=== PATIENT | female | born 1970 | race Caucasian/White ===

== ENCOUNTER 2025-01-15 14:54 | Outpatient (AMB) | payer BC, SELFPAY ==
--- NOTE | 2025-01-15 14:58 | A.OFFVIS_ITS ---
Vital Signs 01/15/25 15:24 Height 5 ft 2 in Weight 124 lb 3 oz BMI 22.7 BP 136/68 Blood Pressure Location Rt brachial Position Sitting Pulse 92 Pulse Source Pulse Oximeter Pulse Oximetry (%) 99 Oxygen Delivery Method Room Air Intake Visit Reasons: Cecil screening Intake Note: NEW PATIENT for abd pain, hx of gastroparesis and chronic nausea. Pt transferred from [facility] to [facility] per PCP recommendation. Prior hx of colo/egd? 2-3 years ago via [facility]. Records request filled out and signed by patient. Chief Complaint; C/O chronic condition mgmt. Pt transferred from [facility] to our department for continuity of care per PCP. Pt has hx of IBS-Mixed as well as ischemic colitis. Pt reports starting humira after cessation of enbrel with positive results to this point. Campus Wellness Coordinator Required: No Accompanied by: Self / Same As Patient Allergies latex Allergy (Mild, Verified 01/15/25 15:01) Rash amoxicillin Allergy (Unknown, Verified 01/15/25 15:01) Unknown HPI HPI Cecil screening: Details: [age] year old female with past medical history of fibromyalgia, hypothyroidism, depression, anxiety, Richard-Danlos, gastroparesis, chronic constipation, adhesions is here today for initial consultation. Patient was sent to us by her PCP for 2nd opinion. Patient previously seen him [facility], last visit with them was in June 2022. Patient has been having long history of GI symptoms. She describes it for most of her life. Nausea and constipation along with abdominal pain. Diagnosed with ischemic colitis in 2016. Patient did not require surgery at that time. Patient was hospitalized for 2 weeks. Followed by [facility] till about 2 and half years ago. Diagnosed with gastroparesis in 2016. Notes from PCP and her GI specialist reviewed. Few years ago patient had vasovagal passing-out episodes, was on Holter monitor and was evaluated for POTS. Patient had extensive workup with them that included colonoscopy, video capsule endoscopy and upper endoscopy. Diverticulosis was found. Upper endoscopy was normal. She had 1 polyp, tubular adenoma found without dysplasia or carcinoma. Patient's last colonoscopy was in 2016 and she is due to go for another procedure. When reviewing records I found that on colonoscopy in May of 2017 she was found to have segmental severe inflammation in the sigmoid colon secondary to ischemic colitis, moderate diverticulosis was found. [facility] Medical History (Updated 02/04/25 @ 18:40 by Akanksha Abreu [facility]) Rheumatoid arteritis POTS (postural orthostatic tachycardia syndrome) Richard-Danlos syndrome Lupus (systemic lupus erythematosus) Gastroparesis Chronic nausea Irritable bowel syndrome with diarrhea Constipation Surgical History (Updated 01/15/25 @ 15:25 by Marck Daniel CCM) History of colonoscopy H/O: hysterectomy Family History (Updated 01/15/25 @ 15:25 by MAYA Monge) Father Colon cancer Maternal Grandmother Colon cancer Social History (Updated 01/15/25 @ 15:06 by MAYA Monge) Alcohol intake: never Patient Tobacco Use Status: Former Tobacco user Review of Systems Const Denies weight gain and Denies weight loss ENT Reports no additional complaints, Denies dysphagia and Denies odynophagia Card Reports no additional complaints Resp Reports no additional complaints GI Reports abdominal pain (Epigastric), Denies belching, Denies melena, Reports bloating, Denies change in bowel habits, Reports constipation, Denies dysphagia, Denies excessive flatus, Reports dyspepsia, Reports heartburn, Denies diarrhea, Reports loose stools, Reports nausea, Denies odynophagia and Denies vomiting Reports no additional complaints Musc Reports no additional complaints Neuro Reports no additional complaints Psych Reports no additional complaints Endo Reports no additional complaints Physical Exam Vital Signs: Last Vital Signs Pulse 92 01/15/25 15:24 BP 136/68 01/15/25 15:24 Pulse Ox 99 01/15/25 15:24 Oxygen Delivery Method Room Air 01/15/25 15:24 BMI result Body Mass Index 22.7 Const General: healthy appearing, no acute distress and well developed Nutritional Appearance: well nourished Orientation/consciousness: patient oriented x3 Resp Effort & Inspection: normal respiratory effort, able to speak in complete sentences, no tracheal deviation and symmetric chest movement Auscultation: clear to auscultation bilaterally Cardio Rate: regular rate GI Inspection: Yes normal to inspection and No distended Palpation (GI): Soft to palpation, not firm, nontender and No hepatosplenomegaly present Auscultation: normal bowel sounds General: Yes no CVA tenderness Back/Spine/Pelvis Back: no CVA tenderness Skin General skin exam: elasticity normal, turgor normal and dry skin Neuro General: patient oriented x3 Psych Appearance: grossly normal Mental Status: mental status grossly normal Assessment & Plan Assessment & Plan (1) Constipation: Code(s): K59.00 - Constipation, unspecified Category: Medical Qualifiers: Constipation type: slow transit constipation Qualified Code(s): K59.01 - Slow transit constipation (2) Gastroparesis: Code(s): K31.84 - Gastroparesis Category: Medical (3) Chronic nausea: Code(s): R11.0 - Nausea Category: Medical (4) Irritable bowel syndrome with diarrhea: Code(s): K58.0 - Irritable bowel syndrome with diarrhea Category: Medical (5) Postprandial abdominal bloating: Code(s): R14.0 - Abdominal distension (gaseous) (6) Postprandial epigastric pain: Code(s): R10.13 - Epigastric pain Plan Will start patient on pantoprazole, avoid dietary triggers and late night snacking. Staying upright for minimum 3 hours after meals discussed with patient. Will send her to check for celiac. Will check magnesium and vitamin K. Patient does report postprandial loose stools. Occasional abdominal bloating postprandially and sometimes not related to meals. Low FODMAP diet discussed with patient. List of food recommended as well as list of food to avoid given to patient. Patient will also be sent for upper GI swallow due to her epigastric pain. Awaiting records from him [facility] to check her gastric emptying study and other tested were done. Patient has not seen him for over 2 years. Will rule out malabsorption as well as colitis. Patient reports frequently feeling like she does not empty her bowels she can start taking senna. Increase fluid intake and activity to promote better bowel motility. Patient will follow-up in 3-4 months, sooner on as needed basis. She was given the opportunity to ask questions and all questions answered. Thank you for allowing me to participate in her care Orders: Orders Calprotectin, Fecal 01/15/25 R15.9 - Full incontinence of feces Transglutaminase IgA 01/15/25 R10.9 - Unspecified abdominal pain Magnesium 01/15/25 N18.9 - Chronic kidney disease, unspecified Vitamin K1 01/15/25 R10.9 - Unspecified abdominal pain FL upper GI w Ba Swallow 01/15/25 K21.9 - Gastro-esophageal reflux disease without esophagitis Medications: New sennosides (Natural Senna Laxative) 17.2 mg (2 x 8.6 mg) PO BEDTIME 60 tabs 3RF constipation K59.00 - Constipation, unspecified pantoprazole take one tablet half an hour before breakfast 40 mg PO DAILY 30 tabs 2RF K21.9 - Gastro-esophageal reflux disease without esophagitis Coding Level of Care Code New Pt Level 4 (62116) Diagnoses Slow transit constipation K59.01 Constipation type: slow transit constipation Gastroparesis K31.84 Chronic nausea R11.0 Irritable bowel syndrome with diarrhea K58.0 Postprandial abdominal bloating R14.0 Postprandial epigastric pain R10.13 Time Spent (min) 50 Comment 35 minutes spent with patient and additional 15 minutes spent reviewing her records
[2025-01-15 15:24] VITALS: BP 136/68; PULSE 92; O2SAT 99; BMI 22.7
--- OUTSIDE RECORDS SUMMARY | 2025-01-15 17:45 | XMS_ITS | Data Portability ---
Author Organization [facility], Endoscopy, [facility] Address [address] [place] [address] Assessment No assessment recorded. Plan of Treatment Reminders Order Date Submit Date Provider Last Modified By Organization Details Last Modified Time Details Appointments None record ed. Lab None record ed. Referral None record ed. Procedures None record ed. Surgeries None record ed. Imaging None record ed. Medication Orders None record ed. Patient TargetsNo targets recorded. Patient InstructionsNo instructions recorded. Reason for Referral None Reported. Problems Name Problem SNOMED Code Status Onset Date Resolution Date Notes Provider Name and Address Organization Details Recorded Time Fibromyalgia 786331407 Active 2022 DEVIKA Munson, [facility] 3 14:11:30 Problem Notes None recorded. Procedures Surgical History Date Name Laterality Status Provider Name and Address Organization Details Recorded Time 3 Armen - Colonoscopy completed Diaz Ayers MD [address] [place] [address], [phone], [facility] [place]01/20[place] 08:34:53 Imaging Results None recorded. Procedure Notes None recorded. Medical Equipment None Reported. Allergies Allergen ID Allergen Name Allergen Category Reaction Reaction Severity Criticality Documentation Date Start Date Code Code System Note Provider Name and Address Organization Details Recorded Time 558220 methotrex ate medicatio n other Not available Not available 10/28/2022 6851 RxNorm tremo rs DEVIKA Braga, [facility] 3 14:26:51 048098 amoxicill in medicatio n other Not available Not available 10/28/2022 723 RxNorm gi upset DEVIKA Braga, [facility] 3 14:27:10 761001 Dilaudid medicatio n other Not available Not available 10/28/2022 81983 3 RxNorm hypot ensio nsync ope Noy Evans RN [facility] 3 14:27:33 Medications Name Sig Start Date Stop Date Status Note LastModified by Organization Details LastModified Time estradiol 1 mg tablet TAKE 1 TABLET BY MOUTH ONCE DAILY active Not Available Not Available No t Available prednisone 1 mg tablet TAKE 3 TABLETS BY MOUTH ONCE DAILY active Not Available Not Available No t Available baclofen 10 mg tablet TAKE 1 TABLET BY MOUTH NIGHTLY AT BEDTIME active Not Available Not Available No t Available levothyroxine 50 mcg tablet TAKE 1 TABLET BY MOUTH ONCE DAILY ON AN EMPTY STOMACH active Not Available Not Available No t Available diclofenac sodium 50 mg tablet,delayed release TAKE 1 TABLET BY MOUTH ONCE DAILY active Not Available Not Available No t Available bupropion HCl XL 300 mg 24 hr tablet, extended release TAKE 1 TABLET BY MOUTH ONCE DAILY IN THE MORNING active Not Available Not Available No t Available pregabalin 25 mg capsule TAKE 1 CAPSULE BY MOUTH THREE TIMES DAILY active Not Available Not Available No t Available pregabalin 75 mg capsule TAKE 1 CAPSULE BY MOUTH NIGHTLY AT BEDTIME active Not Available Not Available No t Available biotin active Not Available Not Availa ble Not Available Vitamin D active Not Available Not Lamar ilable Not Available Miralax active Not Available Not Avail able Not Available Plenvu 140 gram-9 gram-5.2 gram powder packs USE DIRECTED active Not Available Not Available No t Available Vitals None Recorded Social History None recorded. Functional Status None recorded. Mental Status None recorded. Family History Nothing Reported. Medical History No medical history recorded. Gynecological HistoryNo gynecological history recorded. Obstetrics History GPAL:G 0 P 0 0 0 0 Past Encounters Encounter ID Performer Location Encounter Start Date Encounter Closed Date Diagnosis/Indication Diagnosis SNOMED-CT Code Diagnosis ICD10 Code Diagnosis Note [id number] Physical Therapy, [address] [address] 01/18/2005 09:02:56 01/18/2005 10:27:03 [id number] Physical Therapy, [address] [address] 01/22/2005 08:34:44 01/22/2005 08:35:06 [id number] Physical Therapy, [address] [address] 02/01/2005 14:41:10 02/01/2005 16:30:12 [id number] Physical Therapy, [facility] [place] [address] 02/08/2005 08:01:16 02/08/2005 09:14:52 [id number] Physical Therapy, [facility] [place] [address] 01/25/2005 09:34:38 01/25/2005 10:02:57 [id number] Physical Therapy, [facility] [place] [address] 02/15/2005 07:57:57 02/15/2005 08:00:27 [id number] Physical Therapy, [facility] [place] [address] 02/22/2005 08:00:55 02/22/2005 08:01:21 [id number] Lianne Loomis [facility] [place] [address] 01/26/2016 09:26:59 01/26/2016 14:01:54 [id number] Fernandez Reyes MD [facility] [place] [address] 08/05/2017 06:40:02 08/05/2017 12:33:05 [id number] Noy Evans RN Endoscopy , [facility] [place] [address] 11/01/2022 06:43:33 11/01/2022 12:51:43 Health Concerns Section Related Observation LastModified by Organization Detai ls LastModified Time None Recorded Concern Status LastModified by Organization Details LastModified Time None Recorded Advance Directives Directive None Recorded Payers Encounter Date Sequence Insurance Name Policy Number Policy Nieto Covered Member ID Nieto Member ID Guarantor Name 11/01/2022 1 [place] [facility] [place] [id number] Chauncey Dunlap [id number] Mayte Dunlap OBGyn Episode No OBEpisode recorded.
--- OUTSIDE RECORDS SUMMARY | 2025-01-15 17:45 | XMS_ITS | Data Portability ---
Author Organization [facility], , [facility] Address [address] [place] [address] Assessment No assessment recorded. Plan of Treatment [...] instructions recorded. Reason for Referral None Reported. Results Created Date Observation Date Name Description Value Unit Range Abnormal Flag Note LastModifiedBy Organization Detail LastModifiedTime Result Notes None recorded. Problems Name Problem SNOMED Code Status Onset Date Resolution Date Notes Provider Name and Address Organization Details Recorded Time Shoulder pain 49217469 Completed 200409/05/2013 Not Available [facility] 3 02:01:03 Primary fibromyalgi a syndrome 42740455 Active 2004 Not Available [facility] 3 03:04:50 Problem Notes None recorded. Procedures Surgical History Date Name Laterality Status Provider Name and Address Organization Details Recorded Time 7 Eric - Colonoscopy completed Fernandez Reyes MD [address] [place] [address], [phone], [facility] 08/05/2017 08:38:00 6 Eric - EGD completed Fernandez Reyes MD [address] [place] [address], [phone], [facility] 01/26/2016 11:59:19 6 Eric - Colonoscopy completed Fernandez Reyes MD [address] [place] [address], [phone], [facility] 01/26/2016 12:22:59 Imaging Results None recorded. Procedure Notes None recorded. Medical Equipment None Reported. Vitals None Recorded Social History None recorded. Functional Status None recorded. Mental Status None recorded. Family History Nothing Reported. Medical History No medical history recorded. Gynecological HistoryNo gynecological history recorded. Obstetrics History GPAL:G 0 P 0 0 0 0 Past Encounters Encounter ID Performer Location Encounter Start Date Encounter Closed Date Diagnosis/Indication Diagnosis SNOMED-CT Code Diagnosis ICD10 Code Diagnosis Note [id number] Physical Therapy, [address] [place] [address] 01/18/2005 09:02:56 01/18/2005 10:27:03 [id number] Physical Therapy, [address] [place] [address] 01/22/2005 08:34:44 01/22/2005 08:35:06 [id number] Physical Therapy, [address] [place] [address] 02/01/2005 14:41:10 02/01/2005 16:30:12 [id number] Physical Therapy, [address] [place] [address] 02/08/2005 08:01:16 02/08/2005 09:14:52 [id number] Physical Therapy, [address] [place] [address] 01/25/2005 09:34:38 01/25/2005 10:02:57 [id number] Physical Therapy, [address] [place] [address] 02/15/2005 07:57:57 02/15/2005 08:00:27 [id number] Physical Therapy, [address] [place] [address] 02/22/2005 08:00:55 02/22/2005 08:01:21 [id number] Lianne Loomis [facility], [address] [place] [address] 01/26/2016 09:26:59 01/26/2016 14:01:54 [id number] Fernandez Reyes MD [facility], [address] [place] [address] 08/05/2017 06:40:02 08/05/2017 12:33:05 [id number] Noy Evans RN Endoscopy , [address] [place] [address] 11/01/2022 06:43:33 11/01/2022 12:51:43 Health Concerns Section Related Observation LastModified by Organization Detai ls LastModified Time None Recorded Concern Status LastModified by Organization Details LastModified Time None Recorded Advance Directives Directive None Recorded Payers Encounter Date Sequence Insurance Name Policy Number Policy Nieto Covered Member ID Nieto Member ID Guarantor Name 02/08/2005 1 [place] Chauncey Dunlap [id number] Mayte Dunlap 02/15/2005 1 [place] Chauncey Dunlap [id number] Mayte Dunlap 02/22/2005 1 [place] Chauncey Dunlap [id number] Mayte Dunlap 01/26/2016 1 [facility] [place] [id number] Mayte Dunlap [id number] Mayte Dunlap 01/26/2016 1 [employer] [id number] Mayte Dunlap [id number] Mayte Dunlap 08/05/2017 1 [place] [facility] [place] [id number] Chauncey Dunlap [id number] Mayte Dunlap OBGyn Episode No OBEpisode recorded.
== END 2025-01-15 15:58 | disposition home or self-care (01) ==
PROVIDERS: PCP Student in an Organized Health Care Education/Training Program; Visit Provider Nurse Practitioner Family
DX: K59.01 Slow transit constipation (principal); K31.84 Gastroparesis; R11.0 Nausea; K58.0 Irritable bowel syndrome with diarrhea; R14.0 Abdominal distension (gaseous); R10.13 Epigastric pain
CPT/HCPCS: 99204

== ENCOUNTER 2025-01-15 14:54 | Outpatient (REF) | payer BC, SELFPAY ==
[2025-01-15 18:01] LABS: Magnesium 2.2 mg/dL (1.6-2.6)
[2025-01-16 21:54] LABS: Transglutaminase IgA <1.0 U/mL
[2025-01-19 19:23] LABS: Vitamin K1 55 pg/mL (130-1500)
== END 2025-01-15 14:55 | disposition home or self-care (01) ==
LOC: HO.LAB 14:54
PROVIDERS: PCP Student in an Organized Health Care Education/Training Program; Visit Provider Nurse Practitioner Family
DX: R10.9 Unspecified abdominal pain (principal); N18.9 Chronic kidney disease, unspecified
CPT/HCPCS: 36415; 83735; 84597; 86364

== ENCOUNTER 2025-04-11 09:04 | Outpatient (REF) | payer BC, SELFPAY ==
--- NOTE | ~2025-04-11 | FL_ITS ---
EXAMINATION: XR UPPER GI SERIES WITH SMALL BOWEL CLINICAL INFORMATION: Gastroesophageal reflux disease without esophagitis. COMPARISON: None available. TECHNIQUE: Routine upper GI air contrast study was performed. In addition barium swallow was performed with thick barium and barium coated saltine crackers. FINDINGS: Following oral administration of thick barium in upright view there is normal. Bolus from the oral cavity, pharynx, esophagus into stomach. There are tertiary peristalsis/corkscrew appearance mid and distal esophagus. On oral administration of barium coated saltine crackers there is normal propagation bolus with slow progression from the oral cavity, pharynx, esophagus into stomach which subsequently clears with thin barium. Effervescent granules was administered orally. On placing patient in supine there is increased gastric secretion. The course, caliber and peristalsis of the stomach, duodenal bulb and this CT is normal. There is mild gastroesophageal reflux without hiatal hernia there is suspicion for gastric erosions in the body of the stomach and the fundus. FLUOROSCOPY TIME: 2 minute 9 seconds. DOSE AREA PRODUCT: 1241 uGy-m2 (microgray-meter squared) FL/FL upper GI w air w Ba Swallow IMPRESSION: Corkscrew appearance of distal esophagus consistent with dysmotility and presbyesophagus. Mild gastroesophageal reflux in supine view. Increased gastric secretions suggestive of hyper acidity. Electronically signed by: Jono Trejo MD 04/11/2025 12:15 PM EDT
--- OUTSIDE RECORDS SUMMARY | 2025-04-11 09:49 | XMS_ITS | Data Portability ---
Author Organization [facility], , [facility] Address [address] [place] [address] Assessment No assessment recorded. Plan of Treatment [...] Name and Address Organization Details Recorded Time Pain of shoulder region 68953491 Completed 200409/05/2013 Not Available Counts include 234 beds at the [facility] 3 02:01:03 Primary fibromyalgi a syndrome 77287056 Active 2004 Not Available Counts include 234 beds at the [facility] 3 03:04:50 Problem Notes None recorded. Procedures Surgical History Date Name Laterality Status Provider Name and Address Organization Details Recorded Time 7 Eric - Colonoscopy completed Fernandez Reyes MD [address] [place] [address], [phone], [facility] 08/05/2017 08:38:00 6 Eric - EGD completed Fernandez Reyes MD [address] [place] [address], [phone], [facility] 01/26/2016 11:59:19 6 Eric - Colonoscopy completed Fernandez Reyes MD [address] [place] [address], [phone], [facility] 01/26/2016 12:22:59 Imaging Results None recorded. Procedure [...] SNOMED-CT Code Diagnosis ICD10 Code Diagnosis Note [id number] Paul Ferguson i, PT Physical Therapy, [address] [address] 01/18/2005 09:02:56 01/18/2005 10:27:03 [id number] Paul Ferguson i, PT Physical Therapy, [address] [address] 01/22/2005 08:34:44 01/22/2005 08:35:06 [id number] Paul Ferguson i, PT Physical Therapy, [address] [address] 02/01/2005 14:41:10 02/01/2005 16:30:12 [id number] Paul Ferguson i, PT Physical Therapy, [address] [address] 02/08/2005 08:01:16 02/08/2005 09:14:52 [id number] Paul Ferguson i, PT Physical Therapy, [address] [address] 01/25/2005 09:34:38 01/25/2005 10:02:57 [id number] Paul Ferguson i, PT Physical Therapy, [address] [address] 02/15/2005 07:57:57 02/15/2005 08:00:27 [id number] Paul Ferguson i, PT Physical Therapy, [address] [address] 02/22/2005 08:00:55 02/22/2005 08:01:21 [id number] Fernandez Reyes MD [facility], [address] [address] 01/26/2016 09:26:59 01/26/2016 14:01:54 [id number] Fernandez Reyes MD [facility], [address] [address] 08/05/2017 06:40:02 08/05/2017 12:33:05 [id number] Diaz Ayers MD Endoscopy , [address] [address] 11/01/2022 06:43:33 11/01/2022 12:51:43 Health Concerns Section Related Observation LastModified by Organization Detai ls LastModified Time None Recorded Concern Status LastModified by Organization Details LastModified Time None Recorded Advance Directives Directive None Recorded Payers Insurance Date Sequence Insurance Name Policy Number Policy Nieto Covered Member ID Nieto Member ID Guarantor Name 11/30/2022 1 [place]: [facility] [place] [id number] Chauncey Dunlap [id number] Mayte Dunlap 06/28/2017 1 [facility] (O) [id number] Mayte Dunlap [id number] Mayte Dunlap 06/28/2017 1 [employer] [id number] Mayte Dunlap [id number] Mayte Dunlap 01/23/2016 1 [employer] (O) Chauncey Dunlap [id number] Mayte Dunlap OBGyn Episode No OBEpisode recorded.
== END 2025-04-11 09:05 | disposition home or self-care (01) ==
LOC: HO.XRAY 09:04
PROVIDERS: PCP Student in an Organized Health Care Education/Training Program; Visit Provider Nurse Practitioner Family
DX: K21.9 Gastro-esophageal reflux disease without esophagitis (principal)
CPT/HCPCS: 74246

== ENCOUNTER → 2025-04-11 09:05 | Outpatient (BNV) | payer BC, SELFPAY | PROVIDERS: PCP Student in an Organized Health Care Education/Training Program; Visit Provider Radiology Diagnostic Radiology | DX: K21.9 Gastro-esophageal reflux disease without esophagitis (principal) | CPT/HCPCS: 74246 ==

== ENCOUNTER 2025-04-17 15:46 | Outpatient (AMB) | payer BC, SELFPAY ==
--- OUTSIDE RECORDS SUMMARY | 2025-04-17 15:50 | XMS_ITS | Data Portability ---
Author Organization [facility], , [facility] Address [address] [place] [address] Assessment No assessment recorded. Plan of Treatment [...] Details Recorded Time Pain of shoulder region 70113731 Completed 200409/05/2013 Not Available [facility] 3 02:01:03 Primary fibromyalgi a syndrome [id number] Active 2004 Not Available [facility] 3 03:04:50 Problem Notes None recorded. Procedures Surgical History Date Name Laterality Status Provider Name and Address Organization Details Recorded Time 7 Eric - Colonoscopy completed Fernandez Reyes MD [address] [place] [address], [id number], [facility] 08/05/2017 08:38:00 6 Eric - EGD completed Fernandez Reyes MD [address] [place] [address], [phone], [facility] 01/26/2016 11:59:19 6 Eric - Colonoscopy completed Fernandez Reyes MD [address] [place] [address], [phone], [facility] 01/26/2016 12:22:59 Imaging Results None recorded. Procedure [...] SNOMED-CT Code Diagnosis ICD10 Code Diagnosis Note [id number] Paul Ferguson i, PT Physical Therapy, [address] [address] 01/18/2005 09:02:56 01/18/2005 10:27:03 [id number] Paul Ferguson i, PT Physical Therapy, [address] [address] 01/22/2005 08:34:44 01/22/2005 08:35:06 [id number] Paul Ferguson i, PT Physical Therapy, [address] [address] 02/01/2005 14:41:10 02/01/2005 16:30:12 [id number] Paul Ferguson i, PT Physical Therapy, [address] [address] 02/08/2005 08:01:16 02/08/2005 09:14:52 [id number] Paul Ferguson i, PT Physical Therapy, [address] [address] 01/25/2005 09:34:38 01/25/2005 10:02:57 [id number] Paul Ferguson i, PT Physical Therapy, [address] [address] 02/15/2005 07:57:57 02/15/2005 08:00:27 [id number] Paul Ferguson i, PT Physical Therapy, [address] [address] 02/22/2005 08:00:55 02/22/2005 08:01:21 [id number] Fernandez Reyes MD [facility], [address] [address] 01/26/2016 09:26:59 01/26/2016 14:01:54 [id number] Fernandez Reyes MD [facility], [address] [address] 08/05/2017 06:40:02 08/05/2017 12:33:05 [id number] Diaz Ayers MD Endoscopy , [address] [address] 11/01/2022 06:43:33 11/01/2022 12:51:43 Health Concerns Section Related Observation LastModified by Organization Detai ls LastModified Time None Recorded Concern Status LastModified by Organization Details LastModified Time None Recorded Advance Directives Directive None Recorded Payers Insurance Date Sequence Insurance Name Policy Number Policy Nieto Covered Member ID Nieto Member ID Guarantor Name 11/30/2022 1 PAOL[facility]: [facility] [place] [id number] Chauncey Dunlap [id number] Mayte Dunlap 06/28/2017 1 [facility] (O) [id number] Mayte Dunlap [id number] Mayte Dunlap 06/28/2017 1 v2 Ratings [id number] Mayte Dunlap [id number] Mayte Dunlap 01/23/2016 1 [facility] (O) Chauncey Dunlap [id number] Mayte Dunlap OBGyn Episode No OBEpisode recorded.
--- NOTE | 2025-04-17 16:01 | A.OFFVIS_ITS ---
Vital Signs 04/17/25 16:06 Height 5 ft 2 in Weight 123 lb 8 oz BMI 22.6 BP 126/76 Blood Pressure Location Rt brachial Position Sitting Pulse 94 Pulse Source Pulse Oximeter Pulse Oximetry (%) 95 Oxygen Delivery Method Room Air Intake Visit Reasons: f/u gerd Intake Note: EST PATIENT for mgmt of abd pain, gastroparesis and chronic nausea. Imaging done. Labs done. CC; C.O. difficulty with obtaining PPI from pharmacy. Pt still experiencing chronic sx without tx. 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 Staying upright for minimum 3 hours after meals discussed with patient. Will send her to check for celiac. Will check magnesium and vitamin K. Patient does report postprandial loose stools. Occasional abdominal bloating postprandially and sometimes not related to meals. Low FODMAP diet discussed with patient. List of food recommended as well as list of food to avoid given to patient. Patient will also be sent for upper GI swallow due to her epigastric pain. Awaiting records from [facility] to check her gastric emptying study and other tests that were done. Patient has not seen them for over 2 years. Will r ule out malabsorption as well as colitis. Patient reports frequently feeling like she does not empty her bowels she can start taking senna. Increase fluid intake and activity to promote better bowel motility. Patient will follow-up in 3-4 months, sooner on as needed basis. She was given the opportunity to ask questions and all questions answered. ? Thank you for allowing me to participate in her care Orders Calprotectin, Fecal 01/15/25 R15.9 Transglutaminase IgA 01/15/25 R10.9 Magnesium 01/15/25 N18.9 Vitamin K1 01/15/25 R10.9 FL upper GI w Ba Swallow 01/15/25 K21.9 New sennosides (Natural Senna Laxative) 17.2 mg (2 x 8.6 mg) PO BEDTIME 60 tabs 3RF constipation K59.00 pantoprazole take one tablet half an hour before breakfast 40 mg PO DAILY 30 tabs 2RF K21.9 TODAY'S VISIT: Patient is here today for follow-up and to discuss lab and upper GI series with barium swallow results. Patient reports that she is still feeling the same. Patient was unable to get her prescription for pantoprazole from pharmacy. Will give patient good Rx card and she can get it at her pharmacy at [facility]. For 90 tablets will be 20 dollars. Upper endoscopy and colonoscopy is not scheduled yet will try to get patient in this month. Upper GI series with barium swallow discussed with patient. 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 Will start patient 1st on PPI and then will try her on prucalopride. Patient is already on baclofen. Will have her go for endoscopy 1st. Patient had low vitamin K level and she is taking vitamin K supplement FOR[facility]LY [facility], [facility] Medical History (Updated 02/04/25 @ 18:40 by Akanksha Abreu [facility]) Rheumatoid arteritis POTS (postural orthostatic tachycardia syndrome) Richard-Danlos syndrome Lupus (systemic lupus erythematosus) Gastroparesis Chronic nausea Irritable bowel syndrome with diarrhea Constipation Surgical History (Updated 01/15/25 @ 15:25 by MAYA Monge) History of colonoscopy H/O: hysterectomy Family History (Updated 01/15/25 @ 15:25 by MAYA Monge) Father Colon cancer Maternal Grandmother Colon cancer Social History (Updated 01/15/25 @ 15:06 by MAYA Monge) Alcohol intake: never Patient Tobacco Use Status: Former Tobacco user Review of Systems Const Denies weight gain and Denies weight loss ENT Reports no additional complaints, Denies dysphagia and Denies odynophagia Card Reports no additional complaints Resp Reports no additional complaints GI Reports abdominal pain (Epigastric), Denies belching, Denies melena, Reports bloating, Denies change in bowel habits, Reports constipation, Denies dysphagia, Denies excessive flatus, Reports dyspepsia, Reports heartburn, Denies diarrhea, Reports loose stools, Reports nausea, Denies odynophagia and Denies vomiting Reports no additional complaints Musc Reports no additional complaints Neuro Reports no additional complaints Psych Reports no additional complaints Endo Reports no additional complaints Physical Exam Vital Signs: Last Vital Signs Pulse 94 04/17/25 16:06 BP 126/76 04/17/25 16:06 Pulse Ox 95 04/17/25 16:06 Oxygen Delivery Method Room Air 04/17/25 16:06 BMI result Body Mass Index 22.6 Const General: healthy appearing, no acute distress and well developed Nutritional Appearance: well nourished Orientation/consciousness: patient oriented x3 Resp Effort & Inspection: normal respiratory effort, able to speak in complete sentences, no tracheal deviation and symmetric chest movement Auscultation: clear to auscultation bilaterally Cardio Rate: regular rate GI Inspection: Yes normal to inspection and No distended Palpation (GI): Soft to palpation, not firm, nontender and No hepatosplenomegaly present Auscultation: normal bowel sounds General: Yes no CVA tenderness Back/Spine/Pelvis Back: no CVA tenderness Skin General skin exam: elasticity normal, turgor normal and dry skin Neuro General: patient oriented x3 Psych Appearance: grossly normal Mental Status: mental status grossly normal Results Reviewed Results Reviewed: UPPER GI WITH BARIUM SWALLOW IMPRESSION: Corkscrew appearance of distal esophagus consistent with dysmotility and presbyesophagus. Mild gastroesophageal reflux in supine view. Increased gastric secretions suggestive of hyper acidity. Laboratory Tests 01/15/25 16:31 Magnesium 2.2 Vitamin K1 55 L Tiss Transglutamin IgA <1.0 Assessment & Plan Assessment & Plan (1) Chronic nausea: Code(s): R11.0 - Nausea Category: Medical (2) Gastroparesis: Code(s): K31.84 - Gastroparesis Category: Medical (3) Constipation: Code(s): K59.00 - Constipation, unspecified Category: Medical Qualifiers: Constipation type: slow transit constipation Qualified Code(s): K59.01 - Slow transit constipation (4) Irritable bowel syndrome with diarrhea: Code(s): K58.0 - Irritable bowel syndrome with diarrhea Category: Medical (5) GERD (gastroesophageal reflux disease): Code(s): K21.9 - Gastro-esophageal reflux disease without esophagitis Qualifiers: Esophagitis presence: esophagitis presence not specified Qualified Code(s): K21.9 - Gastro-esophageal reflux disease without esophagitis Plan Patient will start taking pantoprazole daily. Avoid dietary triggers and late night snacking. Staying upright for minimum 3 hours after meals discussed with patient. 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 We could start her on Motegrity, however we will initiate PPI therapy 1st and then introduce that after her procedure. She is going for upper endoscopy. We will try to schedule her this month. Message sent to surgical schedulers to book procedure for patient. Patient was encouraged to eat smaller meals and more often chewing her food and being careful when she swallowing. She will follow-up in the office after the procedure, sooner on as needed basis. She is agreeable to this plan and verbalizes understanding of instructions. She was given the opportunity to ask questions and all questions answered. Thank you for allowing me to participate in her care Medications: New bisacodyl (Dulcolax (bisacodyl)) take 4 tabs at noon the day before your colonoscopy 20 mg (4 x 5 mg) PO ONCE 4 tabs 0RF constipation 1 day Z12.11 - Encounter for screening for malignant neoplasm of colon polyethylene glycol 3350 (Miralax) As directed by gastroenterology department at [facility] 238 grams PO ONCE 238 grams 0RF Z12.11 - Encounter for screening for malignant neoplasm of colon Refilled pantoprazole take one tablet half an hour before breakfast 40 mg PO DAILY 90 tabs 2RF K21.9 - Gastro-esophageal reflux disease without esophagitis Coding Level of Care Code Est Pt Level 4 (72264) Diagnoses Chronic nausea R11.0 Gastroparesis K31.84 Slow transit constipation K59.01 Constipation type: slow transit constipation Irritable bowel syndrome with diarrhea K58.0 Gastroesophageal reflux disease, unspecified whether esophagitis present K21.9 Esophagitis presence: esophagitis presence not specified Time Spent (min) 40 Comment 25 minutes spent with patient and additional 15 minutes spent reviewing her records
[2025-04-17 16:06] VITALS: BP 126/76; PULSE 94; O2SAT 95; BMI 22.6
== END 2025-04-17 17:00 | disposition home or self-care (01) ==
LOC: HO.HGI 15:47
PROVIDERS: PCP Student in an Organized Health Care Education/Training Program; Visit Provider Nurse Practitioner Family
DX: R11.0 Nausea (principal); K31.84 Gastroparesis; K59.01 Slow transit constipation; K58.0 Irritable bowel syndrome with diarrhea; K21.9 Gastro-esophageal reflux disease without esophagitis
CPT/HCPCS: 99214

== ENCOUNTER 2025-05-02 06:14 | Day surgery (SDC) | payer BC, SELFPAY ==
[2025-04-29 14:36] VITALS: BMI 22.6
--- NOTE | 2025-05-01 11:07 | HO.ANESPROP2 ---
Documented by User: Jeimy Hanna NP 05/01/25 11:19 HPI - Anesthesia Eval Consult details Narrative: 55yo F for Upper Endoscopy and Colonoscopy POTS: Follows PCP and Rheum - 03/22/25 ER with CP/dizzy/increase HR. Negative cardiac w/u in ED, has followed up with PCP (thyroid panel ordered) - no further cardiac concerns RA: Humira - held for 2 months for dental procedure - required prednisone taper 04/11/2025 [facility] Active Problems Active Problems: All Active Problems Constipation (Acute) POTS (postural orthostatic tachycardia syndrome) (Acute) Richard-Danlos syndrome (Acute) Lupus (systemic lupus erythematosus) (Acute) Gastroparesis (Acute) Chronic nausea (Acute) Irritable bowel syndrome with diarrhea (Acute) Past Medical History Medical History (Updated 04/30/25 @ 09:19 by Teresa Pierre RN) Rheumatoid arthritis Ischemic colitis POTS (postural orthostatic tachycardia syndrome) Richard-Danlos syndrome Lupus (systemic lupus erythematosus) Gastroparesis Chronic nausea Irritable bowel syndrome with diarrhea Constipation Family History Family History (Updated 01/15/25 @ 15:25 by MAYA Monge) Father Colon cancer Maternal Grandmother Colon cancer Surgical History Surgical History (Updated 04/30/25 @ 09:15 by Teresa Pierre RN) Hx of laparoscopy History of colonoscopy H/O: hysterectomy Social History Social History (Updated 01/15/25 @ 15:06 by MAYA Monge) Are you a primary careers counsellor to a significant other at home: No Do you presently have visiting nurse or other home services: No Alcohol intake: never Patient Tobacco Use Status: Former Tobacco user Second Hand Smoke Exposure: No Use of substances other than those prescribed or required for medical reasons: No Have you been hit, kicked, punched, or otherwise hurt by someone within the past year? If so, by whom?: No Are you DNR?: No Advance Directives: No Advance Directives Information Provided: Yes Advance Directives on File: No Patient : No : No Poor oral hygiene: No Meds Allergies Allergy/AdvReac Type Severity Reaction Status Date / Time hydromorphone (From Dilaudid) Allergy Severe extreme Verified 04/30/25 09:18 bradycardia amoxicillin Allergy Intermediate Rash/GI Verified 04/30/25 09:13 pain latex Allergy Mild Rash Verified 04/17/25 16:04 Home Medications ?Medication ?Instructions ?Recorded ?Confirmed ?Last Taken ?Type baclofen 10 mg tablet 10 mg PO BEDTIME 01/11/25 04/30/25 Unknown History biotin 1 mg capsule 1 mg PO TID 01/11/25 04/30/25 Unknown History bupropion HCl 300 mg 24 hr tablet, 300 mg PO QAM 01/11/25 04/30/25 Unknown History extended release (Wellbutrin XL) cholecalciferol (vitamin D3) 50 50 mcg PO DAILY 01/11/25 04/30/25 Unknown History mcg (2,000 unit) capsule diclofenac sodium 50 mg 50 mg PO BEDTIME 01/11/25 04/30/25 Unknown History tablet,delayed release estradiol 1 mg tablet 1 mg PO DAILY 01/11/25 04/30/25 Unknown History levothyroxine 50 mcg capsule 50 mcg PO BEDTIME 01/11/25 04/30/25 Unknown History oxycodone 5 mg tablet 5 mg PO Q8H PRN 01/11/25 Unknown History polyethylene glycol 3350 17 17 g PO DAILY 01/11/25 04/30/25 Unknown History gram/dose oral powder (Miralax) therapeutic multivitamin 1 tab PO DAILY 01/11/25 04/30/25 Unknown History triamcinolone acetonide 0.1 % 1 appl topical BID 01/11/25 04/30/25 Unknown History topical cream adalimumab 40 mg/0.4 mL 40 mg subcut Q2W 04/17/25 04/30/25 Unknown History subcutaneous pen kit (Humira(CF) Pen) prednisone 10 mg tablet 20 mg PO QPM 04/30/25 04/30/25 Unknown History Exam Height,Weight and Vital Signs: Height 5 ft 2 in Weight 56.019 kg Narrative Narrative: CBC and CMP 03/2025 from outside facility WNL - reports on chart Assessment and Plan Assessment Anesthesia Assessment: Chart Reviewed Documented by User: Kapil Kurtz MD 05/02/25 07:14 [facility] Past Medical History Medical History (Updated 04/30/25 @ 09:19 by Teresa Pierre RN) Rheumatoid arthritis Ischemic colitis POTS (postural orthostatic tachycardia syndrome) Richard-Danlos syndrome Lupus (systemic lupus erythematosus) Gastroparesis Chronic nausea Irritable bowel syndrome with diarrhea Constipation Family History Family History (Updated 01/15/25 @ 15:25 by MAYA Monge) Father Colon cancer Maternal Grandmother Colon cancer Family history of problems with anesthesia: No Surgical History Surgical History (Updated 04/30/25 @ 09:15 by Teresa Pierre RN) Hx of laparoscopy History of colonoscopy H/O: hysterectomy History of Problems with Anesthesia: No Social History Social History (Updated 01/15/25 @ 15:06 by MAYA Monge) Are you a primary careers counsellor to a significant other at home: No Do you presently have visiting nurse or other home services: No Alcohol intake: never Patient Tobacco Use Status: Former Tobacco user Second Hand Smoke Exposure: No Use of substances other than those prescribed or required for medical reasons: No Have you been hit, kicked, punched, or otherwise hurt by someone within the past year? If so, by whom?: No Are you DNR?: No Advance Directives: No Advance Directives Information Provided: Yes Advance Directives on File: No Patient : No : No Poor oral hygiene: No Meds Allergies Allergy/AdvReac Type Severity Reaction Status Date / Time hydromorphone (From Dilaudid) Allergy Severe extreme Verified 04/30/25 09:18 bradycardia amoxicillin Allergy Intermediate Rash/GI Verified 04/30/25 09:13 pain latex Allergy Mild Rash Verified 04/17/25 16:04 Home Medications ?Medication ?Instructions ?Recorded ?Confirmed ?Last Taken ?Type baclofen 10 mg tablet 10 mg PO BEDTIME 01/11/25 04/30/25 Unknown History biotin 1 mg capsule 1 mg PO TID 01/11/25 04/30/25 Unknown History bupropion HCl 300 mg 24 hr tablet, 300 mg PO QAM 01/11/25 04/30/25 Unknown History extended release (Wellbutrin XL) cholecalciferol (vitamin D3) 50 50 mcg PO DAILY 01/11/25 04/30/25 Unknown History mcg (2,000 unit) capsule diclofenac sodium 50 mg 50 mg PO BEDTIME 01/11/25 04/30/25 Unknown History tablet,delayed release estradiol 1 mg tablet 1 mg PO DAILY 01/11/25 04/30/25 Unknown History levothyroxine 50 mcg capsule 50 mcg PO BEDTIME 01/11/25 04/30/25 Unknown History oxycodone 5 mg tablet 5 mg PO Q8H PRN 01/11/25 Unknown History polyethylene glycol 3350 17 17 g PO DAILY 01/11/25 04/30/25 Unknown History gram/dose oral powder (Miralax) therapeutic multivitamin 1 tab PO DAILY 01/11/25 04/30/25 Unknown History triamcinolone acetonide 0.1 % 1 appl topical BID 01/11/25 04/30/25 Unknown History topical cream adalimumab 40 mg/0.4 mL 40 mg subcut Q2W 04/17/25 04/30/25 Unknown History subcutaneous pen kit (Humira(CF) Pen) prednisone 10 mg tablet 20 mg PO QPM 04/30/25 04/30/25 Unknown History Exam Airway Mallampati Class: I TM Dist: >3cm Neck ROM: Full Assessment and Plan Assessment Anesthesia Assessment: Anesthesia Plan Discussed Final Anesthetic Review Family History of Problems with Anesthesia: No History of Problems with Anesthesia: No NPO: Yes ASA Class: III Final Preanesthetic Review: No Changes in Pt Med Stat, Meds/Allgs Chart Reviewed, Consent Obtained/Reviewed and Anes Risks/Benef Reviewed Patient Risk: Intermediate Procedure Risk: Low Anesthetic Plan Anesthetic Plan: TIVA Disposition: Standard PACU
[2025-05-02 06:42] VITALS: BP 122/75; PULSE 85; RESP 16; TEMP 36.4; O2SAT 98
[2025-05-02] MEDS: Lactated Ringers 1,000 ML 100 ML IVCONT (06:50)
--- NOTE | 2025-05-02 07:40 | MHC.SHP ---
Pre-Procedural Eval Section A - 24 Hr Update-Section A only Date of Service: 05/02/25 Section B - Complete if H&P > 30 days Chief Complaint: screening,gerd,hx malignant neoplasm Relevant Family History (Specify if Yes): Yes Relevant Social History: None Present Medications: see Short Stay Collaborative assessment Medical History: Significant History (Rheumatoid arteritis POTS (postural orthostatic tachycardia syndrome) Richard-Danlos syndrome Lupus (systemic lupus erythematosus) Gastroparesis Chronic nausea Irritable bowel syndrome with diarrhea Constipation) History of Previous Operations: Relevant previous surgery/procedure and date(s) (History of colonoscopy H/O: hysterectomy) Allergies: Allergies Allergy/AdvReac Type Severity Reaction Status Date / Time hydromorphone (From Dilaudid) Allergy Severe extreme Verified 04/30/25 09:18 bradycardia amoxicillin Allergy Intermediate Rash/GI Verified 04/30/25 09:13 pain latex Allergy Mild Rash Verified 04/17/25 16:04 Review of Systems Sugical H&P ROS: Negative: Constitution, Cardiovascular, Respiratory, Neurological, Psychiatric, Hem-Onc, Allergic/Immunologic, Gastrointestinal, Genitourinary, Musculoskeletal, Integumentary, Endocrine and Eyes/Ears/Nose/Throat Exam Surgical H&P Exam: Normal: HEENT, Normal: Heart, Normal: Lungs, Normal: Extremities, Normal: Abdomen, Normal: Skin and Normal: Neurological Plan Diagnosis/Plan: Unchanged I have reviewed the history and physical and performed a pertinent physical examination on my patient. No changes have occurred unless specified. Time Spent With Patient Time: Total time managing care of this patient today ____ minutes.
--- NOTE | 2025-05-02 08:24 | HO.OPN-COLON ---
Colonoscopy Operative Note Operative Note Date of Service: 05/02/25 Narrative: Operative Information Procedure Description: EGD, Colonoscopy Indication: abn bowel habits, dysphagia Anesthesia: MAC FLEXIBLE TRANSORAL UPPER GASTROINTESTINAL ENDOSCOPY AND COLONOSCOPY PROCEDURE NOTE UPPER ENDOSCOPY Consent: Indications for the procedure and potential complications of bleeding, perforation, reaction to medications and missed diagnosis were discussed with the patient and informed consent was obtained. Instrument: Olympus GIF H 190 J mid size upper endoscope Monitoring: Vital signs and clinical assessment, continuous EKG monitoring, Pulse oximetry, Carbon Dioxide monitoring and blood pressure monitoring were done throughout the procedure. Procedure: The patient was placed in the left lateral decubitis position and pre-procedure medications were administered and a bite block was placed. The endoscope was inserted into the mouth and advanced under direct vision to the third part of duodenum. A careful inspection was made as the upper endoscope was withdrawn including a retroflexed examination of the proximal stomach; Findings and interventions are described below. Findings: Larynx:normal Esophagus: GE junction at 32 cm, diaphragm hiatus at 32 cm, normal mucosa- bx taken from distal and proximal esophagus, balloon dilation at LES and UES with heme noted at GEJ. Stomach: Patchy erythema and few fundic gland polyps noted 3-4 mm . Biopsies were obtained and poylps removed with cold forceps. Grade 2 flap valve on retroflexed examination of the cardia. Pylorus was tight and dialted using balloon to 20 mm with heme noted around the outlet. Duodenum: Normal bulb and descending duodenum, bx taken Intervention: Biopsies as noted above, wire guided and non wire guided balloon dilation of esophagus and pylorus COLONOSCOPY Instrument: Olympus variable stiffness pediatric scope 190L Colonoscopy Monitoring: Vital signs and clinical assessment, continuous EKG monitoring, Pulse oximetry, Carbon Dioxide monitoring and blood pressure monitoring were done throughout the procedure. Colon withdrawal time was 11 minutes. Procedure: The patient was placed in the left lateral decubitis position and pre-procedure medications were administered. After a digital rectal examination of the ano-rectum, the video colonoscope was inserted into the rectum and advanced through the colon to the cecum/TI. The colonoscope was slowly withdrawn in a retrograde panoramic fashion and the colon mucosa was carefully examined including a retroflexed view of the rectum. Findings and interventions are described below. Procedure Difficulty:moderate- tight colon, tortuous Findings: Terminal Ileum-normal, bx taken\ random bx taken from right and left colon Cecum: 4-6 mm sessile polyp removed with cold forceps and melanosis coli noted right sided retroflexion- diverticula noted Ascending Colon: moderate diverticulosis Transverse Colon -normal Descending Colon: mild diverticulosis Sigmoid Colon: moderate severe diverticulosis, tight angles Rectum: Retroflexion with small internal hemorrhoids, grade I Anorectum - normal Colon preparation: [place] Bowel Preparation Scale Right colon; 2 Transverse colon: 2 Left colon; 2 (0 = Unprepared colon segment with mucosa not seen due to solid stool that cannot be cleared. 1 = Portion of mucosa of the colon segment seen, but other areas of the colon segment not well seen due to staining, residual stool and/or opaque liquid. 2 = Minor amount of residual staining, small fragments of stool and/or opaque liquid, but mucosa of colon segment seen well. 3 = Entire mucosa of colon segment seen well with no residual staining, small fragments of stool or opaque liquid) Impression and Post Procedure Diagnosis: Endoscopy Findings: gastritis pyloric stricture Colonoscopy Findings: diverticulosis colon polyp internal hemorrhoids melanosis coli tortuous colon Plan: Await Pathology results Repeat Colonoscopy in 5 years due to polyp or earlier if clinically indicated High fiber diet leaflet avoid straining at stool, epsom salts and sitz bath, anusol supps or cream Above findings were reviewed with the patient and relevant handouts were provided if indicated.
[2025-05-02 08:31] VITALS: BP 111/60; PULSE 88; RESP 16; TEMP 36.1; O2SAT 100
[2025-05-02 08:45] VITALS: BP 128/76; PULSE 78; RESP 16; O2SAT 100
[2025-05-02 09:00] VITALS: BP 128/76; PULSE 80; RESP 20; TEMP 36.6; O2SAT 96
== END 2025-05-02 09:32 | disposition home or self-care (01) ==
PROVIDERS: PCP Student in an Organized Health Care Education/Training Program; Visit Provider Internal Medicine Gastroenterology
PROC: (CPT 45380; principal; 2025-05-02 07:30)
DX: Z12.11 Encounter for screening for malignant neoplasm of colon (principal); D12.0 Benign neoplasm of cecum; K63.89 Other specified diseases of intestine; K57.30 Diverticulosis of large intestine without perforation or abscess without bleeding; K64.0 First degree hemorrhoids; K56.2 Volvulus; Z80.0 Family history of malignant neoplasm of digestive organs; R13.10 Dysphagia, unspecified; R19.2 Visible peristalsis; K22.2 Esophageal obstruction; K29.60 Other gastritis without bleeding; K31.7 Polyp of stomach and duodenum; K21.9 Gastro-esophageal reflux disease without esophagitis; L93.0 Discoid lupus erythematosus; K31.84 Gastroparesis; G90.A Postural orthostatic tachycardia syndrome [POTS]; Q79.60 Ehlers-Danlos syndrome, unspecified; Z87.891 Personal history of nicotine dependence; Z79.899 Other long term (current) drug therapy
CPT/HCPCS: 45380; 43249; 43245; 43239; 88305; 88313; 88341; 88342; C1726; J2003; J2704

== ENCOUNTER → 2025-05-02 06:14 | Outpatient (BNV) | payer BC, SELFPAY | PROVIDERS: PCP Student in an Organized Health Care Education/Training Program; Visit Provider Internal Medicine Gastroenterology | DX: Z12.11 Encounter for screening for malignant neoplasm of colon (principal); D12.0 Benign neoplasm of cecum; K57.90 Diverticulosis of intestine, part unspecified, without perforation or abscess without bleeding; K63.89 Other specified diseases of intestine; K64.0 First degree hemorrhoids; K21.9 Gastro-esophageal reflux disease without esophagitis; K29.71 Gastritis, unspecified, with bleeding; K31.7 Polyp of stomach and duodenum; K31.84 Gastroparesis | CPT/HCPCS: 43245; 43249; 45380 ==

== ENCOUNTER 2025-05-14 07:40 | Outpatient (AMB) | payer BC, SELFPAY ==
--- OUTSIDE RECORDS SUMMARY | 2025-05-14 07:43 | XMS_ITS | Encounter Summary ---
Author Organization [facility] Address [address] [place] [address] Phone Care Team Providers Care Museum Exhibit Designer Name Role Phone Margy Palacio LOOM WINDER TENDER Unavailable Jeimy Sherwood LOOM WINDER TENDER Unavailable [phone] Guillermina Johnson DO Unavailable JosemateuszRegina Illiana EFFICIENCY EXPERT Unavailable Michelle Peterson LOOM WINDER TENDER Unavailable Chanell Espinosa MD Unavailable Isabel Guerra DO Unavailable Toño Ashby MD Unavailable David Rocha MD Unavailable Keyana Yanes RDCS Unavailable [email or web address] Jose Resendiz MD Unavailable Pat Gustafson MD Unavailable Cooper Ortiz MD Unavailable [phone] Marleny Medrano MD Unavailable [phone] Anand Rebollar MD Unavailable Cooper Ortiz MD Unavailable [phone] Socorro Huerta MD Primary Care Provider [phone] Socorro Huerta MD Unavailable [phone] Encounter Details Date Type Department Care Team (Late st Contact Info) Description 08/02/2021 Procedure Pass [facility], Ct Scan - [address] [address] Social History Tobacco Use Types Packs/Day Years Used Date Smoking Tobacco: Former Cigarettes Q uit: 12/01/1989 Smokeless Tobacco: Never Alcohol Use Standard Drinks/Week Comments No 0 (1 standard drink = 0.6 oz pur e alcohol) Child or Family Care Answer Date Record ed Do you have problems with on e of the following making it difficult for you to work, study, or receive health care? No 03/11/2021 Education Answer Date Recorded Are you interested in help w ith more adult education (for example, completing high school, GED, job training, learning the [place] language, technical skills, or developing parenting skills)? No 03/11/2021 Food Answer Date Recorded Within the past 6 months we worried whether our food would run out before we got money to buy more. Never True 03/11/2021 Within the past 6 months the food we bought just didn't last and we didn't have enough money to get more. Never True Paying for Meds Answer Date Recorded Do you have trouble paying for medicines? No 03/11/2021 Paying Utility Bills Answer Date Record ed Do you have trouble paying your heating or elect ricity bill? No 03/11/2021 Transportation Answer Date Recorded Has the lack of transportati on kept you from medical appointments or from getting medications? No 03/11/2021 Unemployment Answer Date Recorded Are you currently unemployed or working on a part-time or temporary basis, and looking for work? 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 Wish to be (Past 1 Month) No 08/02/2021 12:02 PM EDT Alex Robbins RN 2. Non-Specific Active Suicidal Thoughts (Past 1 Month) No 08/02/2021 12:02 PM EDT Alex Robbins RN 6. Suicidal Behavior (Lifetime) No 08/02/2021 12:02 PM EDT Alex Robbins RN documented as of this encounter Plan of Treatment Upcoming Encounters Date Type Department Care Team (Late st Contact Info) Description 06/03/2025 4:00 PM EDT Office Visit [address] [address] Socorro Huerta MD [address] [place] [address] [email or web address] 07/11/2025 8:00 AM EDT Office Visit [address] [address] Socorro Huerta MD [address] [place] [address] 01/23/2026 3:40 PM EDT Office Visit [facility] [address], [address] [place] [address] Matthew Mota MD [address] [place] [address] [email or web address] documented as of this encounter Visit Diagnoses Not on filedocumented in this encounter Additional Health Concerns Infection Onset Date Last Indicated Resolved Time CoV-Risk 01/09/2024 01/09/2024 01/09/2024 3:38 PM EDT COVID-19 01/09/2024 01/09/2024 01/30/2024 1:2 1 AM EDT documented as of this encounter Care Teams Museum Exhibit Designer Relationship Specialty Start Date End Date Socorro Huerta MD [address] [place] [address] [address] [place] [address] [email or web address] PCP - General Family Medicine 06/11/21 Margy Palacio NP [address] [place] [address] Historical LMR Provider 08/07/17 2 Jeimy Sherwood NP [address] [place] [address] Historical LMR Provider 08/07/17 2 Guillermina Johnson DO [address] [place] [address] [email or web address] Historical LMR Provider 08/07/17 Regina Cruz FNP [address] [place] [address] [email or web address] Historical LMR Provider 08/07/17 Michelle Petreson, JACQUELINE [address] [place] [address] Historical LMR Provider 08/07/17 2 Chanell Espinosa MD [address] [place] [address] 7 [place] [address] Historical LMR Provider 08/07/17 10/24/21 Isabel Guerra DO [address] [place] [address] Historical LMR Provider 08/07/17 2 Toño Ashby MD [address] [place] [address] Historical LMR Provider 08/07/17 David Rocha MD [address] [phone] Historical LMR Provider 08/07/17 2 Keyana Ynaes, [facility] Historical LMR Provider 08/07/17 10/24/21 Jose Resendiz MD [address] [place], [place] Historical LMR Provider 08/07/17 2 Pat Gustafson MD [address] [address] [email or web address] Historical LMR Provider 08/07/17 Cooper Ortiz MD [address] [facility] [place] [phone] [email or web address] Historical LMR Provider 08/07/17 Marleny Medrano MD [address] [place] [phone] Historical LMR Provider 08/07/17 2 Anand Rebollar MD [address] [place] [address] Historical LMR Provider 08/07/17 2 Cooper Ortiz MD [address] [place] [address] [address] [place] [address] [email or web address] Insurance Assigned Provider 02/17/19 05/22/22 Socorro Huerta MD [address] [place] [address] [address] [place] [address] [email or web address] Insurance Assigned Provider 01/21/24 documented as of this encounter Additional Source Comments The information contained in this document represents components of the legal health record. It is not the complete legal health record.[facility]
--- OUTSIDE RECORDS SUMMARY | 2025-05-14 07:43 | XMS_ITS | Data Portability ---
Author Organization [facility], Endoscopy, [facility] Address [address] [place] [address] Assessment No assessment recorded. Plan of Treatment [...] and Address Organization Details Recorded Time Fibromyalgia [id number] Active 2022 DEVIKA Munson, [facility] 3 14:11:30 Problem Notes None recorded. Procedures Surgical History Date Name Laterality Status Provider Name and Address Organization Details Recorded Time 3 Armen - Colonoscopy completed Diaz Ayers MD [address] [place] [address], [phone] 11/01/2022 08:34:53 Imaging Results None recorded. Procedure Notes None recorded. Medical Equipment None Reported. Allergies Allergen ID Allergen Name Allergen Category Reaction Reaction Severity Criticality Documentation Date Start Date Code Code System Note Provider Name and Address Organization Details Recorded Time 406942 methotrex ate medicatio n other Not available Not available 10/28/2022 6851 RxNorm tremo rs DEVIKA Braga, [facility] 3 14:26:51 563069 amoxicill in medicatio n other Not available Not available 10/28/2022 723 RxNorm gi upset DEVIKA Braga [facility] 3 14:27:10 [id number] Dilaudid medicatio n other Not available Not available 10/28/2022 23113 3 RxNorm hypot ensio nsync ope Noy Evans RN [facility] 3 14:27:33 Medications Name Sig Start [...] SNOMED-CT Code Diagnosis ICD10 Code Diagnosis Note [id number] Paul Ferguson i, PT Physical Therapy, [address] [address] 01/18/2005 09:02:56 01/18/2005 10:27:03 [id number] Paul Ferguson i PT Physical Therapy, [address] [address] 01/22/2005 08:34:44 01/22/2005 08:35:06 [id number] Paul Ferguson i, PT Physical Therapy, [place] [address] 02/01/2005 14:41:10 02/01/2005 16:30:12 [id number] Paul Ferguson i, PT Physical Therapy, [facility] [place] [address] 02/08/2005 08:01:16 02/08/2005 09:14:52 [id number] Paul Ferguson i, PT Physical Therapy, [place] [address] 01/25/2005 09:34:38 01/25/2005 10:02:57 [id number] Paul Ferguson i, PT Physical Therapy, [place] [address] 02/15/2005 07:57:57 02/15/2005 08:00:27 [id number] Paul Ferguson i, PT Physical Therapy, [address] [place] [address] 02/22/2005 08:00:55 02/22/2005 08:01:21 [id number] Fernandez Reyes MD [facility], [place] [address] 01/26/2016 09:26:59 01/26/2016 14:01:54 [id number] Fernandez Reyes MD [facility], [place] [address] 08/05/2017 06:40:02 08/05/2017 12:33:05 [id number] Diaz Ayers MD Endoscopy , [address] [place] [address] 11/01/2022 06:43:33 11/01/2022 12:51:43 Health Concerns Section Related Observation LastModified by Organization Detai ls LastModified Time None Recorded Concern Status LastModified by Organization Details LastModified Time None Recorded Advance Directives Directive None Recorded Payers Insurance Date Sequence Insurance Name Policy Number Policy Nieto Covered Member ID Nieto Member ID Guarantor Name 11/30/2022 1 [place]: [facility] [id number] Chauncey Dunlap [id number] Mayte Dunlap 06/28/2017 1 [facility] ([facility]) [id number] Mayte Dulnap [id number] Mayte Dunlap 06/28/2017 1 [employer] [id number] Mayte Dunlap [id number] Mayte Dunlap 01/23/2016 1 [employer]OL[employer] (PPO) Chauncey Dunlap [id number] Mayte Dunlap OBGyn Episode No OBEpisode recorded.
--- NOTE | 2025-05-14 08:04 | MHC.OFFVIS ---
Vital Signs 05/14/25 08:11 Height 5 ft 2 in Weight 123 lb 4 oz BMI 22.5 BP 110/70 Blood Pressure Location Rt brachial Position Sitting Pulse 94 Pulse Source Pulse Oximeter Pulse Oximetry (%) 100 Oxygen Delivery Method Room Air Intake Visit Reasons: Post OP Duo, Gerd mgmt r/s 07/12/25 Intake Note: EST PATIENT for mgmt of abd pain, gastroparesis and chronic nausea. S/P FUV. CC; Pt denies any changes or new sx since last visit. Architectural Draftsperson Required: No Accompanied by: Self / Same As Patient Allergies hydromorphone (From Dilaudid) Allergy (Severe, Verified 05/14/25 08:12) extreme bradycardia amoxicillin Allergy (Intermediate, Verified 05/14/25 08:12) Rash/GI pain latex Allergy (Mild, Verified 05/14/25 08:12) Rash HPI HPI Post OP Duo, Gerd mgmt r/s 07/12/25: Details: LAST VISIT: Chronic nausea Gastroparesis Constipation Irritable bowel syndrome with diarrhea GERD (gastroesophageal reflux disease) Plan Patient will start taking pantoprazole daily. Avoid dietary triggers and late night snacking. Staying upright for minimum 3 hours after meals discussed with patient. 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 We could start her on Motegrity, however we will initiate PPI therapy 1st and then introduce that after her procedure. She is going for upper endoscopy. We will try to schedule her this month. Message sent to surgical schedulers to book procedure for patient. Patient was encouraged to eat smaller meals and more often chewing her food and being careful when she swallowing. She will follow-up in the office after the procedure, sooner on as needed basis. She is agreeable to this plan and verbalizes understanding of instructions. She was given the opportunity to ask questions and all questions answered. ? Thank you for allowing me to participate in her care New bisacodyl (Dulcolax (bisacodyl)) take 4 tabs at noon the day before your colonoscopy 20 mg (4 x 5 mg) PO ONCE 4 tabs 0RF constipation 1 day Z12.11 polyethylene glycol 3350 (Miralax) As directed by gastroenterology department at [facility] 238 grams PO ONCE 238 grams 0RF Z12.11 Refilled pantoprazole take one tablet half an hour before breakfast 40 mg PO DAILY 90 tabs 2RF K21.9 UPPER ENDOSCOPY AND COLONOSCOPY Findings: Larynx:normal Esophagus: GE junction at 32 cm, diaphragm hiatus at 32 cm, normal mucosa- bx taken from distal and proximal esophagus, balloon dilation at LES and UES with heme noted at GEJ. Stomach: Patchy erythema and few fundic gland polyps noted 3-4 mm . Biopsies were obtained and poylps removed with cold forceps. Grade 2 flap valve on retroflexed examination of the cardia. Pylorus was tight and dialted using balloon to 20 mm with heme noted around the outlet. Duodenum: Normal bulb and descending duodenum, bx taken Intervention: Biopsies as noted above, wire guided and non wire guided balloon dilation of esophagus and pylorus COLONOSCOPY Instrument: Olympus variable stiffness pediatric scope 190L Colonoscopy Monitoring: Vital signs and clinical assessment, continuous EKG monitoring, Pulse oximetry, Carbon Dioxide monitoring and blood pressure monitoring were done throughout the procedure. Colon withdrawal time was 11 minutes. Procedure: The patient was placed in the left lateral decubitis position and pre-procedure medications were administered. After a digital rectal examination of the ano-rectum, the video colonoscope was inserted into the rectum and advanced through the colon to the cecum/TI. The colonoscope was slowly withdrawn in a retrograde panoramic fashion and the colon mucosa was carefully examined including a retroflexed view of the rectum. Findings and interventions are described below. Procedure Difficulty:moderate- tight colon, tortuous Findings: Terminal Ileum-normal, bx taken\ random bx taken from right and left colon Cecum: 4-6 mm sessile polyp removed with cold forceps and melanosis coli noted right sided retroflexion- diverticula noted Ascending Colon: moderate diverticulosis Transverse Colon -normal Descending Colon: mild diverticulosis Sigmoid Colon: moderate severe diverticulosis, tight angles Rectum: Retroflexion with small internal hemorrhoids, grade I Anorectum - normal Colon preparation: [place] Bowel Preparation Scale Right colon; 2 Transverse colon: 2 Left colon; 2 (0 = Unprepared colon segment with mucosa not seen due to solid stool that cannot be cleared. 1 = Portion of mucosa of the colon segment seen, but other areas of the colon segment not well seen due to staining, residual stool and/or opaque liquid. 2 = Minor amount of residual staining, small fragments of stool and/or opaque liquid, but mucosa of colon segment seen well. 3 = Entire mucosa of colon segment seen well with no residual staining, small fragments of stool or opaque liquid) Impression and Post Procedure Diagnosis: Endoscopy Findings: gastritis pyloric stricture Colonoscopy Findings: diverticulosis colon polyp internal hemorrhoids melanosis coli tortuous colon Plan: Await Pathology results Repeat Colonoscopy in 5 years due to polyp or earlier if clinically indicated High fiber diet leaflet avoid straining at stool, epsom salts and sitz bath, anusol supps or cream PATHOLOGY RESULTS Addendum Addendum #1 [place] Red is negative for amyloid deposition in parts A, B, D, F, H and I. CD117 Immunohistochemistry (# cells per high powered field): A. Duodenum (12 cells per HPF) B. Stomach (7 cells per HPF) D. Esophagus (2 cells per HPF) F. Terminal ileum (14 cells per HPF) H. Colon, right (11 cells per HPF) I. Colon, left (9 cells per HPF) GI tract involvement by systemic mastocytosis is characterized by aggregates of atypical appearing mast cells, which are often oval or spindle-shaped - features not seen in the current specimens. In reactive processes, mast cells are not atypical appearing and occur singly (as in this case). In one study (Dio et al. PMID [id number]), the number of mast cells per high-powered field in IBS patients with diarrhea was elevated compared to asymptomatic patients (30 per high-powered field for IBS; 26 per high- powered field for asymptomatic patients in colon biopsies; statistically significant). Mast cell density in other areas of the GI tract is not well characterized. There are myriad other causes of elevated mast cells in GI mucosa, including allergies, celiac disease, malignancies, infections and drugs, among other etiologies (Hayde, etal. PMID [id number]). Correlation with the patient's clinical presentation and other laboratory studies is necessary. Electronically Signed By: Reta Godfrey MD 05/09/25 1530 Diagnosis A. Duodenum, biopsy: Duodenal mucosa within normal limits; preserved villous architecture and no increase in intraepithelial lymphocytes seen TODAY'S VISIT Patient is here today for follow-up and to discuss upper endoscopy and colonoscopy results. Patient denies any ill effects from the prep, anesthesia or procedure itself. Patient reports to be feeling fairly well after the procedure. She is taking pantoprazole me in the morning and acid reflux is suppressed. Dilation of pyloric stricture. Patient denies having any epigastric pain. Upper endoscopy in colonoscopy results discussed with patient. Patient reports that she is moving her bowels well. She is taking Senokot, however we will discontinue as patient was found to have melanosis coli. Patient denies melena, hematochezia, unintentional weight loss or ribbon like stools. Patient denies any dyspepsia, dysphagia or odynophagia. [facility] Medical History (Updated 04/30/25 @ 09:19 by Teresa Pierre RN) Rheumatoid arthritis Ischemic colitis POTS (postural orthostatic tachycardia syndrome) Richard-Danlos syndrome Lupus (systemic lupus erythematosus) Gastroparesis Chronic nausea Irritable bowel syndrome with diarrhea Constipation Surgical History (Updated 04/30/25 @ 09:15 by Teresa Pierre RN) Hx of laparoscopy History of colonoscopy H/O: hysterectomy Family History (Updated 01/15/25 @ 15:25 by MAYA Monge) Father Colon cancer Maternal Grandmother Colon cancer Social History (Updated 01/15/25 @ 15:06 by MAYA Monge) Are you a primary menagerie caretaker to a significant other at home: No Do you presently have visiting nurse or other home services: No Alcohol intake: never Patient Tobacco Use Status: Former Tobacco user Second Hand Smoke Exposure: No Review of Systems Const Denies weight gain and Denies weight loss ENT Reports no additional complaints, Denies dysphagia and Denies odynophagia Card Reports no additional complaints Resp Reports no additional complaints GI Reports abdominal pain (Epigastric), Denies belching, Denies melena, Reports bloating, Denies change in bowel habits, Reports constipation, Denies dysphagia, Denies excessive flatus, Reports dyspepsia, Reports heartburn, Denies diarrhea, Reports loose stools, Reports nausea, Denies odynophagia and Denies vomiting Reports no additional complaints Musc Reports no additional complaints Neuro Reports no additional complaints Psych Reports no additional complaints Endo Reports no additional complaints Physical Exam Const General: healthy appearing, no acute distress and well developed Nutritional Appearance: well nourished Orientation/consciousness: patient oriented x3 Resp Effort & Inspection: normal respiratory effort, able to speak in complete sentences, no tracheal deviation and symmetric chest movement Auscultation: clear to auscultation bilaterally Cardio Rate: regular rate GI Inspection: Yes normal to inspection and No distended Palpation (GI): Soft to palpation, not firm, nontender and No hepatosplenomegaly present Auscultation: normal bowel sounds General: Yes no CVA tenderness Back/Spine/Pelvis Back: no CVA tenderness Skin General skin exam: elasticity normal, turgor normal and dry skin Neuro General: patient oriented x3 Psych Appearance: grossly normal Mental Status: mental status grossly normal Assessment & Plan Assessment & Plan (1) Chronic nausea: Code(s): R11.0 - Nausea Category: Medical (2) Gastroparesis: Code(s): K31.84 - Gastroparesis Category: Medical (3) Constipation: Code(s): K59.00 - Constipation, unspecified Category: Medical Qualifiers: Constipation type: slow transit constipation Qualified Code(s): K59.01 - Slow transit constipation (4) Irritable bowel syndrome with diarrhea: Code(s): K58.0 - Irritable bowel syndrome with diarrhea Category: Medical (5) Gastroesophageal reflux disease: Code(s): K21.9 - Gastro-esophageal reflux disease without esophagitis Qualifiers: Esophagitis presence: esophagitis presence not specified Qualified Code(s): K21.9 - Gastro-esophageal reflux disease without esophagitis Plan Patient will continue pantoprazole daily. Avoid dietary triggers and late night snacking. Staying upright for minimum 3 hours after meals discussed with patient. Patient will start taking Dulcolax and stop senna. Increase fluid intake and activity to promote better bowel motility. Patient was encouraged to increase fiber intake. Colonoscopy repeated in 5 years, sooner if clinically necessary. Patient will follow-up in 3 months, sooner on as needed basis. She is agreeable to this plan and verbalizes understanding of instructions. She was given the opportunity to ask questions and all questions answered. Thank you for allowing me to participate in her care Medications: New bisacodyl (Dulcolax (bisacodyl)) 10 mg (2 x 5 mg) PO BEDTIME 180 tabs 4RF Discontinued sennosides (Natural Senna Laxative) Discontinued Reason: Doctor's Order 17.2 mg (2 x 8.6 mg) PO BEDTIME 60 tabs 3RF constipation K59.00 - Constipation, unspecified Coding Level of Care Code Est Pt Level 4 (59640) Complex EM visit Add On G2211 Diagnoses Chronic nausea R11.0 Gastroparesis K31.84 Slow transit constipation K59.01 Constipation type: slow transit constipation Irritable bowel syndrome with diarrhea K58.0 Gastroesophageal reflux disease, unspecified whether esophagitis present K21.9 Esophagitis presence: esophagitis presence not specified Time Spent (min) 35 Comment 25 minutes spent with patient and additional 10 minutes spent reviewing her records move
[2025-05-14 08:11] VITALS: BP 110/70; PULSE 94; O2SAT 100; BMI 22.5
== END 2025-05-14 08:34 | disposition home or self-care (01) ==
LOC: HO.HGI 07:41
PROVIDERS: PCP Student in an Organized Health Care Education/Training Program; Visit Provider Nurse Practitioner Family
DX: R11.0 Nausea (principal); K31.84 Gastroparesis; K59.01 Slow transit constipation; K58.0 Irritable bowel syndrome with diarrhea; K21.9 Gastro-esophageal reflux disease without esophagitis
CPT/HCPCS: 99214